=== PATIENT | female | born 1980 | race African-American/Black ===

== ENCOUNTER 2018-02-18 09:19 | Emergency (ER) | payer BC ==
[~2018-02-18] VITALS: Ht 172.7 cm; Wt 57.2 kg
--- NOTE | 2018-02-18 09:28 | NUR ---
PT BIB SELF C/O RLE PAIN AND SWELLING X 3 DAYS, CONCERN ABOUT BLOOD CLOT. PT IS AAOX4,NOT IN RESPIRATORY DISTRESS, V/S STABLE, KEPT RESTED AND COMFORTABLE.
[2018-02-18 09:56] LABS: BASOPHILS # (AUTO) 0.1 /CMM (0.0-0.2); BASOPHILS % (AUTO) 0.7 % (0.0-2.0); EOSINOPHILS % (AUTO) 5.9 % (0.0-6.0); HEMATOCRIT 31 % (33-45); HEMOGLOBIN 8.9 g/dL (11.5-14.8); LYMPHOCYTES # (AUTO) 2.1 /CMM (0.8-4.8); LYMPHOCYTES % (AUTO) 25.4 % (20.0-44.0); MEAN CORPUSCULAR HGB CONC 29 g/dl (31.0-36.0); MEAN CORPUSCULAR VOLUME 68 fL (82-100); MONOCYTES # (AUTO) 0.7 /CMM (0.1-1.30); MONOCYTES % (AUTO) 8.8 % (2.0-12.0); NEUTROPHILS % (AUTO) 59.2 % (43.0-81.0); PLATELET COUNT (AUTO) 401 /CMM (150-450); RED BLOOD CELL COUNT(AUTO) 4.48 MIL/uL (4.0-5.2); WHITE BLOOD COUNT (AUTO) 8.4 K/uL (4.3-11.0)
--- NOTE | 2018-02-18 09:56 | NUR ---
TECH AT BEDSIDE FOR DUPLEX SCAN.
[2018-02-18 10:09] LABS: CREATININE 0.7 mg/dL (0.6-1.3); POTASSIUM 3.6 mmol/L (3.5-5.1)
[2018-02-18 10:48] VITALS: BP 120/75
--- NOTE | 2018-02-18 10:49 | NUR ---
Patient discharged to home in stable condition. Written and verbal after care instructions given. Patient verbalizes understanding of instruction.
== END 2018-02-18 10:48 | disposition home or self-care (01) ==
LOC: ER 09:21
DX: I80.01 Phlebitis and thrombophlebitis of superficial vessels of right lower extremity (principal); N92.0 Excessive and frequent menstruation with regular cycle
CPT/HCPCS: 36415; 80048-TC; 85025-TC; 85730-TC; 93971-TC; A4606; Z7610